=== PATIENT | male | born 1950 | race Caucasian/White ===

== ENCOUNTER 2018-05-10 11:17 | Emergency (ER) | payer OTHER ==
[~2018-05-10] VITALS: Ht 182.8 cm; Wt 113.4 kg
[~2018-05-10 11:17] MED LIST: ACTOPLUSMET; ASPIRIN PO; GLIPIZIDE; HYDROCHLOROTHIAZIDE; LISINOPRIL PO; NORFLEX100 MG PO; VERAPAMIL PO; VICODIN ES 7501 TAB PO; VICODIN PO
[2018-05-10 11:19] VITALS: BP 146/77
[2018-05-10] MEDS ORDERED: CEPHALEXIN500 M1 PO (12:57)
== END 2018-05-10 13:25 | disposition home or self-care (01) ==
LOC: ED 11:17
DX: S62.631B Displaced fracture of distal phalanx of left index finger, initial encounter for open fracture (principal); I10 Essential (primary) hypertension; E11.9 Type 2 diabetes mellitus without complications; Z88.0 Allergy status to penicillin; W26.8XXA Contact with other sharp object(s), not elsewhere classified, initial encounter; Y93.89 Activity, other specified; Y92.89 Other specified places as the place of occurrence of the external cause; Y99.8 Other external cause status